=== PATIENT | female | born 1980 | race Caucasian/White ===

== ENCOUNTER 2019-02-18 20:07 | Emergency (ER) | payer OTHER ==
[~2019-02-18] VITALS: Ht 154.9 cm; Wt 50.3 kg
[2019-02-18 20:24] VITALS: BP_SYST 124
--- NOTE | 2019-02-18 20:30 | NUR ---
Patient to ER bed 04 to gown for evaluation. Side rails up. Report given to Madhuri PUTNAM.
--- NOTE | 2019-02-18 20:40 | NUR ---
Pt 8 weeks [id number]; AAOx4 ambulated into ED c/o vaginal bleeding and cramping today. Denies n/v/d. No other injuries/complaints per pt/noted. Will continue to monitor.
--- NOTE | 2019-02-18 20:45 | NUR ---
ER Dr. Woodruff at bedside examining patient.
[2019-02-18 21:08] LABS: BASOPHILS % (AUTO) 0.7 % (0.0-2.0); EOSINOPHILS # (AUTO) 0.2 K/uL (0.0-0.4); EOSINOPHILS % (AUTO) 3.7 % (0.0-4.0); HEMATOCRIT 34.5 % (36-48); HEMOGLOBIN 11.9 g/dL (12.0-16.0); LYMPHOCYTES # (AUTO) 1.9 K/uL (1.0-5.5); LYMPHOCYTES % (AUTO) 30.5 % (20.5-51.5); MEAN CORPUSCULAR HEMOGLOBIN 35 pg (27-31); MEAN CORPUSCULAR HGB CONC 35 % (32-36); MEAN CORPUSCULAR VOLUME 102 fL (79.0-98.0); MONOCYTES # (AUTO) 0.6 K/uL (0.0-1.0); MONOCYTES % (AUTO) 9.1 % (1.7-9.3); NEUTROPHILS # (AUTO) 3.6 K/uL (1.8-7.7); PLATELET COUNT (AUTO) 237 K/uL (130-430); RED BLOOD CELL COUNT(AUTO) 3.38 MIL/uL (4.2-6.2); RED CELL DISTRIBUTION WIDTH 11.3 % (9.0-15.0); WHITE BLOOD COUNT (AUTO) 6.4 K/uL (4.8-10.8)
[2019-02-18 21:25] LABS: CREATININE 0.58 mg/dL (0.55-1.30); POTASSIUM 3.5 mmol/L (3.5-5.1)
[2019-02-18 21:50] LABS: ALBUMIN 3.1 g/dL (3.4-4.8); TOTAL BILIRUBIN 0.2 mg/dL (0.0-1.0)
--- NOTE | 2019-02-18 23:13 | NUR ---
Patient given written and verbal discharge instructions and verbalizes understanding. ER MD discussed with patient the results and treatment provided. Patient in stable condition. ID arm band removed. No Rx given. Patient educated on pain management and to follow up with PMD. Pain Scale 0. Opportunity for questions provided and answered. Medication side effect fact sheet provided.
[2019-02-18 23:14] VITALS: BP_SYST 121
== END 2019-02-18 23:13 | disposition home or self-care (01) ==
LOC: SED 20:07
DX: O46.91 Antepartum hemorrhage, unspecified, first trimester (principal); F41.9 Anxiety disorder, unspecified; Z88.0 Allergy status to penicillin; Z3A.01 Less than 8 weeks gestation of pregnancy
CPT/HCPCS: 36415; 76801; 76817; 80053; 84702-TC; 85025; 99284

== ENCOUNTER 2019-02-19 21:03 | Emergency (ER) | payer OTHER ==
[~2019-02-19] VITALS: Ht 160 cm; Wt 54.4 kg
[2019-02-19 21:12] VITALS: BP_SYST 102
--- NOTE | 2019-02-19 21:17 | NUR ---
Patient triaged and placed in waiting room. VSS and patient appears in no acute distress at this time. Accompanied by , awaiting available bed, and MD notified of need for MSE.
--- NOTE | 2019-02-19 21:23 | NUR ---
Patient to ER bed 08 for evaluation. Side rails up. Report given to Virgil PUTNAM.
--- NOTE | 2019-02-19 21:24 | NUR ---
PT AAOx4, 8 weeks , [id number], ambulated into ED c/o abdominal cramping and spotting. Was seen yesterday for same symptoms, but now requesting the Rhogam shot due to RH negative. No other injuries/complaints per pt/noted. at bedside. Will continue to monitor.
--- NOTE | 2019-02-19 21:24 | NUR ---
Note undone in EDM - 02/19/19 at 2127 by [email or web address] d PT AAOx4, 8 weeks , [id number], ambulated into ED c/o abdominal cramping and spotting. Was seen yesterday for same symptoms, but now requesting the Rhogam shot due to RH negative. No other injuries/complaints per pt/noted. Jatinder
[2019-02-19] MEDS ORDERED: RHO(D) IMMUNE GLOBULIN/MALTOSE 1500 UNITS/1.3 ML (WINHRO) INJ ONE (22:00)
--- NOTE | 2019-02-19 22:15 | NUR ---
Lab specimens obtained and consent signed for Rhogam, awaiting results and Rhogam.
--- NOTE | 2019-02-19 22:49 | NUR ---
Patient resting quietly in no acute distress, able to ambulate without difficulty with slow, steady gait. Awaiting Rhogam and dispo.
--- NOTE | 2019-02-19 23:00 | NUR ---
Patient resting quietly in no acut distress, awaiting Rhogam.
--- NOTE | 2019-02-20 | NUR ---
Patient resting quietly in no acute distress, vital signs stable, respirations even and unlabored, skin warm and dry to touch.
--- NOTE | 2019-02-20 00:10 | NUR ---
Witnessed medication administration with Virgil PUTNAM. Patients ID band and medication were verified prior to medication administration. Patient tolerated IM well, no adverse effects noted.
--- NOTE | 2019-02-20 00:30 | NUR ---
No adverse reaction noted to medication. Patient resting quietly in no acute distress.
[2019-02-20 00:35] VITALS: BP_SYST 104
--- NOTE | 2019-02-20 00:35 | NUR ---
Patient given written and verbal discharge instructions and verbalizes understanding. ER MD discussed with patient the results and treatment provided. Patient in stable condition. ID arm band removed. No RX given. Patient educated on pain management and to follow up with PMD. Pain Scale 0. Opportunity for questions provided and answered. Medication side effect fact sheet provided. Patient left ER in no acute distress, able to ambulate without difficulty with slow, steady gait with spouse at her side. No adverse reaction noted to medication.
== END 2019-02-20 00:35 | disposition home or self-care (01) ==
LOC: SED 21:03
DX: O36.0110 Maternal care for anti-D [Rh] antibodies, first trimester, not applicable or unspecified (principal); F41.9 Anxiety disorder, unspecified; Z88.0 Allergy status to penicillin; Z3A.08 8 weeks gestation of pregnancy
CPT/HCPCS: 36415; 86901; 96372; 99283; J2790; J2792

== ENCOUNTER 2019-10-03 19:21 | Emergency (ER) | payer OTHER ==
[~2019-10-03] VITALS: Ht 154.9 cm; Wt 68.0 kg
[2019-10-03 19:33] VITALS: BP_SYST 117
--- NOTE | 2019-10-03 20:15 | NUR ---
Pt placed to ER bed 05. Pt c/o left leg swelling x 1 day, no pain, denies recent trauma or injury, able to ambulate without difficulty, no discoloration, neurosensory loss. Pt states "my left leg is more swollen than my right and I'm concerned about having a blood clot." Pt s/p delivery 4 days ago, denies comlications.
--- NOTE | 2019-10-03 20:30 | NUR ---
Dr. Woodruff at bedside.
--- NOTE | 2019-10-03 20:54 | NUR ---
Lab at bedside.
[2019-10-03 21:09] LABS: HEMATOCRIT 35.9 % (36-48); HEMOGLOBIN 12.3 g/dL (12.0-16.0); MEAN CORPUSCULAR HEMOGLOBIN 34 pg (27-31); MEAN CORPUSCULAR HGB CONC 34 % (32-36); MEAN CORPUSCULAR VOLUME 100 fL (79.0-98.0); PLATELET COUNT (AUTO) 298 K/uL (130-430); RED CELL DISTRIBUTION WIDTH 12.6 % (9.0-15.0); WHITE BLOOD COUNT (AUTO) 9.5 K/uL (4.8-10.8)
[2019-10-03 21:18] LABS: CALCIUM 8.5 mg/dL (8.4-11.0); CREATININE 0.66 mg/dL (0.55-1.30); POTASSIUM 3.4 mmol/L (3.5-5.1)
[2019-10-03 21:23] LABS: ALBUMIN 2.4 g/dL (3.4-4.8); TOTAL BILIRUBIN 0.3 mg/dL (0.0-1.0)
[2019-10-03 21:25] LABS: BAND % (MANUAL) 0 % (0-6); BASOPHILS % (MANUAL) 0 % (0-2); EOSINOPHILS % (MANUAL) 4 % (0-7); LYMPHOCYTES % (MANUAL) 21 % (20-46); METAMYELOCYTES % 2 % (0-0); MONOCYTES % (MANUAL) 5 % (0-11)
--- NOTE | 2019-10-03 21:34 | NUR ---
Pt returns from [facility]. No c/o pain or discomfort, no needs verbalized.
[2019-10-03 21:50] VITALS: BP_SYST 126
--- NOTE | 2019-10-03 21:50 | NUR ---
Patient given written and verbal discharge instructions and verbalizes understanding. ER MD discussed with patient the results and treatment provided. Patient in stable condition. ID arm band removed. Rx of Macrobid given. Patient educated on pain management and to follow up with PMD. Pain Scale 0/10. Opportunity for questions provided and answered. Medication side effect fact sheet provided.
== END 2019-10-03 21:50 | disposition home or self-care (01) ==
LOC: SED 19:21
DX: N39.0 Urinary tract infection, site not specified (principal); F41.9 Anxiety disorder, unspecified; Z88.0 Allergy status to penicillin
CPT/HCPCS: 36415; 80053; 81002; 81025; 85007; 85027; 93971; 99284

== ENCOUNTER 2022-06-27 16:18 | Emergency (ER) | payer OTHER ==
[~2022-06-27] VITALS: Ht 154.9 cm; Wt 49.9 kg
[2022-06-27 16:24] VITALS: BP_SYST 126
[2022-06-27] MEDS ORDERED: PSEU120T57 PO (17:46)
== END 2022-06-27 18:13 | disposition home or self-care (01) ==
LOC: SED 16:18
DX: J01.90 Acute sinusitis, unspecified (principal); H57.11 Ocular pain, right eye; Z88.0 Allergy status to penicillin; Z79.899 Other long term (current) drug therapy
CPT/HCPCS: 70486-TC; 76376; 99284